=== PATIENT | female | born 1980 | race Caucasian/White ===

== ENCOUNTER → 2019-02-25 | Outpatient (CLI) | payer OTHER ==
[~2019-02-25] MED LIST: BIRTH CONTROL; DIAMOX 250MG250 MG PO; NORVASC 5MG5 MG/TAB PO
== END ==
LOC: COL.RAD
DX: I27.20 Pulmonary hypertension, unspecified (principal)
CPT/HCPCS: A9540; A9567

== ENCOUNTER → 2020-08-31 | Outpatient (CLI) | payer OTHER | LOC: COL.PUL 07:27 | DX: R09.89 Other specified symptoms and signs involving the circulatory and respiratory systems (principal) ==

== ENCOUNTER → 2020-10-28 | Outpatient (CLI) | payer OTHER | LOC: COL.PUL 09:37 | DX: J98.4 Other disorders of lung (principal) | CPT/HCPCS: J7674 ==

== ENCOUNTER 2023-12-11 10:00 | Outpatient (RCR) | payer OTHER ==
[2023-12-02 15:24] VITALS: BP 103/69; PULSE 70; TEMP 97.9
[2023-12-04 10:22] VITALS: BP 134/93; PULSE 72; TEMP 97.7
[2023-12-06 11:03] VITALS: BP 125/79; PULSE 69; TEMP 97.7
[2023-12-09 10:55] VITALS: BP 124/76; PULSE 74; TEMP 98
[~2023-12-11] VITALS: Ht 165.1 cm; Wt 83.1 kg
[~2023-12-11 10:00] MED LIST changes: +ALDACTONE 25MG25 M1 PO; +ASPIRIN 81M81 MG/TA2 PO; +COZAAR 25MG25 MG/TAB PO; +Iron Sucrose 200 MG in NS 100 ML Over 15 minutes IV SCH; +LIPITOR20 MG PO; +NATURAL IRON65 MG PO; +PLAVIX 75MG TAB75 MG PO; +SARAFEM20 M1 PO
[2023-12-11 11:09] VITALS: BP 100/68; PULSE 67; TEMP 98.2
== END 2023-12-11 11:33 ==
LOC: EUO 10:00
DX: D50.0 Iron deficiency anemia secondary to blood loss (chronic) (principal)
CPT/HCPCS: J1756